=== PATIENT | male | born 2000 | race Caucasian/White ===

== ENCOUNTER 2019-07-02 02:41 | Emergency (ER) | payer OTHER ==
--- NOTE | 2019-07-02 03:48 | EDM.PDOC ---
ED HPI GENERAL MEDICAL PROBLEM - General Chief Complaint: Lower Extremity Injury/Pain Stated Complaint: HURT ANKLE Time Seen by Provider: 07/02/19 03:43 Source of Information: Reports: Patient History Limitations: Reports: No Limitations - History of Present Illness INITIAL COMMENTS - FREE TEXT/NARRATIVE: Slipped on ice, twisted right ankle [employer]. Complains of medial right ankle pain and tingling to bottom of right foot. Denies weakness. Onset: Today Duration: Hour(s): (2) Location: Reports: Lower Extremity, Right Quality: Reports: Ache Severity: Moderate - Related Data Allergies Allergy/AdvReac Type Severity Reaction Status Date / Time No Known Allergies Allergy Verified 07/02/19 02:54 Home Meds: Home Meds NK [No Known Home Meds] 07/02/19 [History] Past Medical History Musculoskeletal History: Reports: Other (See Below) Other Musculoskeletal History: History of left shoulder separation and right ankle injury. Social & Family History - Alcohol Use Days Per Week of Alcohol Use: 7 Number of Drinks Per Day: 1 Total Drinks Per Week: 7 - Recreational Drug Use Recreational Drug Use: No Review of Systems - Review of Systems Review Of Systems: Comprehensive ROS is negative, except as noted in HPI. ED EXAM, GENERAL - Physical Exam Exam: See Below Exam Limited By: No Limitations General Appearance: Alert, WD/WN, No Apparent Distress Throat/Mouth: No Airway Compromise Head: Atraumatic, Normocephalic Neck: Full Range of Motion Respiratory/Chest: No Respiratory Distress Peripheral Pulses: 2+: Dorsalis Pedis (R) Extremities: Other (tenderness medial malleolus right ankle, minimal swelling, no deformity, stable ankle) Neurological: Alert, Normal Cognition, No Motor/Sensory Deficits Skin Exam: Warm, Dry, Intact Course - Vital Signs Last Recorded V/S: Last Vital Signs Temp 36.4 C 07/02/19 02:45 Pulse 110 H 07/02/19 02:45 Resp 18 07/02/19 02:45 BP 132/80 07/02/19 02:45 Pulse Ox 100 07/02/19 02:45 - Orders/Labs/Meds Orders: Active Orders 24 hr Category Date Time Status Ankle Min 3V Rt [CR] Stat Exams 07/02/19 02:57 Taken - Radiology Interpretation Free Text/Narrative:: Right ankle xray: No acute fracture or dislocation. (ED provider interpretation) - Re-Assessments/Exams Free Text/Narrative Re-Assessment/Exam: 07/02/19 03:46 Placed in Airc[employer] and fitted with crutches. Departure - Departure Time of Disposition: 03:47 Disposition: Home, Self-Care 01 Condition: Good Clinical Impression: Ankle sprain Qualifiers: Encounter type: initial encounter Involved ligament of ankle: unspecified ligament Laterality: right Qualified Code(s): S93.401A - Sprain of unspecified ligament of right ankle, initial encounter - Discharge Information *PRESCRIPTION DRUG MONITORING PROGRAM REVIEWED*: No *COPY OF PRESCRIPTION DRUG MONITORING REPORT IN PATIENT CHARLES: Not Applicable Instructions: How to Use a Stirrup Ankle Brace, [id number], Crutch Use, Adult , [id number], Ankle Sprain, [id number] Additional Instructions: Weight bear as tolerated. Elevate the leg, ice the area affected. Take OTC Ibuprofen as needed for pain. Follow up with Orthopedic Surgery in 3 days if symptoms don't improve. Sepsis Event Note - Evaluation Sepsis Screening Result: No Definite Risk - Focused Exam Vital Signs: Vital Signs Temp Pulse Resp BP Pulse Ox 07/02/19 02:45 36.4 C 110 H 18 132/80 100 Date Exam was Performed: 07/02/19 Time Exam was Performed: 03:43 - My Orders Last 24 Hours: My Active Orders 07/02/19 02:57 Ankle Min 3V Rt [CR] Stat - Assessment/Plan Last 24 Hours: My Active Orders 07/02/19 02:57 Ankle Min 3V Rt [CR] Stat
--- NOTE | 2019-07-03 11:58 | PCM.SN ---
- Free Text/Narrative Note: Dr Kraus called to say that there was a nondisplaced posterior malleolar fx on imaging of the ankle from yesterday, this information was passed along to pt who said that he is doing well and able to walk with the [employer], he was in class at the moment, he agreed to f/u with Dr Marinelli in ortho in 2-3d for further recommendations including possibly converting him to a walking boot, pt was given the number [phone] to set up an appointment with Dr Marinelli
--- NOTE | 2019-07-03 12:04 | CR ---
INDICATION: Tripped and fell, unable to bear weight. RIGHT ANKLE: Four views of the right ankle were obtained 07/02/2019 - no comparisons. There is some minimal soft tissue swelling overlying the lateral malleolus. The ankle mortise appears to be intact. Joint space is symmetrical. There is suspicion of a posterior malleolar fracture site essentially undisplaced. This could be confirmed by additional views or possibly CT examination as felt to be clinically necessary. No other bone or joint abnormality was identified - no other evidence of fracture or dislocation was seen. IMPRESSION: Suspect a posterior malleolar fracture site although no other signs of acute trauma are identified, except for mild soft tissue swelling overlying the lateral malleolus. Followup x-rays coned down to that area with various angulation should be confirmatory; if necessary, CT could be obtained for confirmation additionally. Report was called to Dr. Funez for Dr. Ramírez. Time of call was 1136 hours. [facility]
== END 2019-07-02 04:00 | disposition home or self-care (01) ==
LOC: FB.ED 02:41
DX: S93.401A Sprain of unspecified ligament of right ankle, initial encounter (principal); X50.1XXA Overexertion from prolonged static or awkward postures, initial encounter
CPT/HCPCS: 73610-RT; 99283-25